=== PATIENT | female | born 1985 | race Caucasian/White ===

== ENCOUNTER → 2017-06-07 | Outpatient (CLI) | payer BC ==
[~2017-06-07] VITALS: Ht 152.4 cm; Wt 59.4 kg
[~2017-06-07] MED LIST: FOLIC ACID0.8 MG PO; LEXAPRO 10MG10 MG PO; PRENATAL MVI PO
[2017-06-07 14:06] VITALS: BP 111/73; PULSE 65
[2017-06-07 15:00] VITALS: BP 124/78; PULSE 76
== END ==
LOC: COL.RAD 13:35
DX: O26.891 Other specified pregnancy related conditions, first trimester (principal); R18.8 Other ascites; Z3A.13 13 weeks gestation of pregnancy
CPT/HCPCS: 19804

== ENCOUNTER → 2017-09-16 | Outpatient (CLI) | payer BC ==
[2006-04-06 07:30] VITALS: TEMP 98.4
== END ==
LOC: LDRO 12:58
DX: Z01.89 Encounter for other specified special examinations (principal)

== ENCOUNTER 2017-12-05 12:45 | Inpatient (IN) | payer BC ==
[~2017-12-05] VITALS: Ht 152.4 cm; Wt 76.4 kg
[2017-12-11] VITALS (43 sets, daily range): BP systolic 96–139; BP diastolic 56–83; PULSE 60–112; TEMP 98.2–98.5
[2017-12-11 09:15] LABS: BASO % 0.5 % (0.0-2.0); EOS # 0.2 (0.0-0.7); EOS % 1.9 % (0-4.0); GRAN # 5.9 (1.4-6.5); GRAN % 71.5 % (42.2-75.2); HEMOGLOBIN 10.9 g/dl (12.5-16.0); LYMPH # 1.5 (1.2-3.4); LYMPH % 18.2 % (20.0-51.0); MEAN CELL VOLUME 87 fl (80.0-100.0); MEAN CORPUSCULAR HEMOGLOBIN 28 pg (27.0-31.0); MEAN CORPUSCULAR HGB CONC 33 g/dl (33.0-37.0); MEAN PLATELET VOLUME 11.8 fl (7.4-10.4); MONO # 0.6 (0.1-0.6); MONO % 7.5 % (1.7-9.3); PLATELET COUNT 222 K/mm3 (130-400); RED BLOOD COUNT 3.84 M/mm3 (4.10-5.30); REDCELL DISTRIBUTION WIDTH-CV 13.4 % (11.5-14.5)
[2017-12-11 09:16] LABS: HEMATOCRIT 33.4 % (37.0-47.0)
[2017-12-11] MEDS ORDERED: TUMS500 MG (10:50)
[2017-12-11] MEDS ORDERED: ZYRTEC 10MG10 MG PO (10:50)
[2017-12-12 01:30] VITALS: BP 112/63; PULSE 90; TEMP 97.8
[2017-12-12] MEDS ORDERED: MOTRIN 800800 MG/TAB PO (08:41)
[2017-12-12 09:19] VITALS: BP 111/59; PULSE 80; TEMP 97.5
[2017-12-12 16:15] VITALS: BP 106/66; PULSE 75; TEMP 98.5
[2017-12-12 21:00] VITALS: BP 120/58; PULSE 81; TEMP 97.6
[2017-12-13 09:15] VITALS: BP 112/70; PULSE 54; TEMP 97.7
== END 2017-12-13 14:00 | disposition home or self-care (01) | DRG 775 ==
LOC: LDR 12:45 → OB 12-11 20:00
PROVIDERS: Obstetrics & Gynecology
PROC: 10E0XZZ Delivery of Products of Conception, External Approach (ICD-10-PCS; principal; 2017-12-11)
PROC: 0UQMXZZ Repair Vulva, External Approach (ICD-10-PCS; 2017-12-11)
DX: O69.81X0 Labor and delivery complicated by cord around neck, without compression, not applicable or unspecified (principal); O71.82 Other specified trauma to perineum and vulva; Z37.0 Single live birth; Z3A.39 39 weeks gestation of pregnancy
CPT/HCPCS: J2400; J2590; J2795; J7120

== ENCOUNTER → 2018-03-29 | Outpatient (CLI) | payer BC ==
[2006-04-06 07:30] VITALS: TEMP 98.4
[~2018-03-29] MED LIST changes: +MOTRIN 800800 MG/TAB PO; +TUMS500 MG; +ZYRTEC 10MG10 MG PO
== END ==
LOC: COL.RAD 10:58
DX: R10.11 Right upper quadrant pain (principal); R11.0 Nausea

== ENCOUNTER → 2018-04-04 | Outpatient (CLI) | payer BC ==
[2006-04-06 07:30] VITALS: TEMP 98.4
== END ==
LOC: COL.RAD 06:51
DX: R10.11 Right upper quadrant pain (principal); R11.0 Nausea
CPT/HCPCS: A9537

== ENCOUNTER → 2018-04-16 | Outpatient (CLI) | payer BC ==
[2006-04-06 07:30] VITALS: TEMP 98.4
== END ==
LOC: COL.RAD 11:27
DX: R18.8 Other ascites (principal); N85.2 Hypertrophy of uterus
CPT/HCPCS: Q9967

== ENCOUNTER 2021-10-15 09:19 | Inpatient (IN) | payer OTHER ==
[~2021-10-15] VITALS: Ht 152.4 cm; Wt 79.1 kg
[2021-10-18] VITALS (39 sets, daily range): BP systolic 88–143; BP diastolic 52–81; PULSE 62–102; TEMP 97.2–98.5
--- NOTE | 2021-10-18 06:30 | NUR ---
Patient ambulatory to LR3 with spouse, changed into gown, FHR/TOCO monitors placed. Patient here for scheduled induction. Patient denies any regular contracitons, leaking of fluid, vaginal bleeding, or decreased movement. Plan of care discussed. 0700: IV started in left wrist, blood obtain and to lab, flushed. 0722: Pitcoin induction discussed at this time and patient agrees with plan. Pitocin started per protocol. 0820: Dr. Shi at bedside and assessing patient and FHR strip. 0824: SVE per physician /-2 and AROM at this time with clear fluid noted. Plan of care discussed.
[2021-10-18] MEDS ORDERED: FERROUSGLUC256MG (06:55)
[2021-10-18] MEDS ORDERED: MILK OF MA400 MG/52 (06:55)
[2021-10-18 07:55] LABS: BASO # 0.1 K/mm3 (0.0-0.2); BASO % 0.6 % (0.0-2.0); EOS # 0.2 K/mm3 (0.0-0.7); EOS % 2.4 % (0.0-4.0); GRAN # 5.8 K/mm3 (1.4-6.5); GRAN % 67.5 % (42.2-75.2); HEMOGLOBIN 12.1 g/dl (12.5-16.0); LYMPH # 1.9 K/mm3 (1.2-3.4); LYMPH % 22.2 % (20.0-51.0); MEAN CELL VOLUME 87 fl (80.0-100.0); MEAN CORPUSCULAR HEMOGLOBIN 29 pg (27-31); MEAN CORPUSCULAR HGB CONC 33 g/dl (33.0-37.0); MEAN PLATELET VOLUME 11.5 fl (7.4-10.4); MONO # 0.6 K/mm3 (0.1-0.6); PLATELET COUNT 231 K/mm3 (130-400); RED BLOOD COUNT 4.17 M/mm3 (4.10-5.30); REDCELL DISTRIBUTION WIDTH-CV 15.5 % (11.5-14.5)
[2021-10-18 07:56] LABS: HEMATOCRIT 36.3 % (37.0-47.0)
--- NOTE | 2021-10-18 09:15 | NUR ---
Difficulty tracing FHR due to maternal position, maternal heart rate intermittently. This RN adjusting monitor. 1120: Patient requesting epidural and Truman Gonzales RETAIL BAKERY MANAGER notified. 1135: Patient sitting up for epidural and Truman Gonzales RETAIL BAKERY MANAGER at bedside. Difficulty tracing FHR due to maternal position. 1142: Single shot given and patient tolerates well. 1145: Patient repositioned and safety instructions discussed. Plan of care discussed.
--- NOTE | 2021-10-18 11:58 | NUR ---
Blood pressure- 84/48 and patient states feeling no symptoms. LR bolus started. FHR baseline 125bpm and recurrent late decelerations noted and patient left lateral. 1205: BP-98/47 1208: BP-77/42 and patient still states feeling okay. 1210: Ephedrine 10mg given IV. 1212: BP-87/49, LR bolus continues. 1222: BP-87/51 and ephedrine given IV. 1229: BP-76/36 Blood pressure cuff readjusted. 1232: BP-108/55 and patient states feeling okay. 1238- BP-102/62 1245: Summers catheter placed and patient tolerates well. SVE-5/80/-2 1250: Recurrent late decelerations noted and patient repositioned and FHR returning to 125bpm baseline. 1310: FHR tracing subtle late decelerations and patient left lateral. 1335: Recurrent varibale decelerations noted. Patient repositioned. 1350: FHR baseline 125-135bpm and recurrent subtle late decelerations and variable decelerations noted. 1355: SVE-8/90/-1 and patient to david position. 1415: FHR baseline 135bpm and recurrent variable decelerations decreasing to 65-80 bpm and patient wedged right. 1425: SVE-9/100/0 and patient feeling more pressure. Recurrent variables noted. 1435: Patient feeling pressure and SVE-10/100/0 and patient prepped for vaginal delivery. Summers catheter removed. Dr. Shi called for delivery. 1448: Dr. Shi at bedside and patient set up. Patient pushes with contractions. 1451: Spontaneous vaginal delivery of viable male- head followed by body. Infant to patients abdomen and Santhosh RN assumes care. Cord clamped x2 and Santhosh RN cuts cord. Cord blood obtained. 1454: Spontaneous delivery of placenta and pitocin bolus started per protocol. Fundal massage done, firm, bleeding WNL. Dr. Shi repairs labial lac. Pericare done, patient repositioned, ice pack to perineum. Plan of care discussed.
[2021-10-19 04:30] VITALS: BP 115/64; PULSE 72; TEMP 98.3
[2021-10-19 07:46] VITALS: BP 96/46; PULSE 88; TEMP 97.9
[2021-10-19] MEDS ORDERED: MOTRIN 800800 MG/TAB PO (08:27)
--- NOTE | 2021-10-19 10:18 | NUR ---
Initial visit; Parents thanked Drag Out Worker for offering congratulations and God's blessings for the of their son. Drag Out Worker thanked family for choosing [facility].
[2021-10-19 16:30] VITALS: BP 125/73; PULSE 76; TEMP 97.4
[2021-10-19 19:30] VITALS: BP 129/69; PULSE 52; TEMP 98.2
[2021-10-20 07:10] VITALS: BP 117/63; PULSE 57; TEMP 97.1
--- NOTE | 2021-10-20 11:38 | NUR ---
DISCHARGE TEACHING COMPLETED. EDUCATED ON PRESCRIPTION AND FOLLOW UP APPOINTMENT. QUESTIONS INVITED AND ANSWERED.
== END 2021-10-20 13:15 | disposition home or self-care (01) | DRG 807 ==
LOC: OB 10-18 06:21 → LDR 10-18 06:21 → OB 10-18 17:30
PROVIDERS: ADMIT Obstetrics & Gynecology
PROC: 10E0XZZ Delivery of Products of Conception, External Approach (ICD-10-PCS; principal; 2021-10-18)
PROC: 10907ZC Drainage of Amniotic Fluid, Therapeutic from Products of Conception, Via Natural or Artificial Opening (ICD-10-PCS; 2021-10-18)
PROC: 0UQMXZZ Repair Vulva, External Approach (ICD-10-PCS; 2021-10-18)
PROC: 3E033VJ Introduction of Other Hormone into Peripheral Vein, Percutaneous Approach (ICD-10-PCS; 2021-10-18)
DX: O99.344 Other mental disorders complicating childbirth (principal); Z37.0 Single live birth; F32.A Depression, unspecified; O99.02 Anemia complicating childbirth; D64.9 Anemia, unspecified; O70.0 First degree perineal laceration during delivery; O69.81X0 Labor and delivery complicated by cord around neck, without compression, not applicable or unspecified; Z3A.39 39 weeks gestation of pregnancy; Z86.16 Personal history of COVID-19
CPT/HCPCS: J2590; J2795; J7120